=== PATIENT | male | born 2000 | race Caucasian/White ===

== ENCOUNTER 2024-07-10 03:50 | Emergency (ER) | payer MEDICAID, SELFPAY ==
[2024-07-10 04:11] VITALS: BP 154/78; PULSE 98; RESP 20; TEMP 37.1; O2SAT 99; BMI 38.3
--- NOTE | 2024-07-10 04:18 | W.ED.EAR ---
HPI - Ear Problem General: Chief complaint: Ear Stated complaint: left ear pain Time Seen by Provider: 07/10/24 04:10 History of Present Illness: This patient is a 23-year-old white male who presents to the emergency department complaining of left ear pain. Patient states he just saw his ENT doctor a couple of days ago with right ear pain. He states he was placed on ofloxacin drops and an antifungal drop. He has not had a fever. No drainage from the ear. Associated symptoms: Reports ear or mastoid pain Related Data Previous Rx's ?Medication ?Instructions ?Recorded amoxicillin 875 mg-potassium 1 tab PO BID 10 days #20 tabs 06/18/24 clavulanate 125 mg tablet citalopram 10 mg tablet See Rx Instructions PO DAILY 60 06/18/24 days #60 tabs cefdinir 300 mg capsule 300 mg PO BID 10 days #20 caps 07/10/24 ibuprofen 800 mg tablet 800 mg PO TID #30 tabs 07/10/24 Allergies Allergy/AdvReac Type Severity Reaction Status Date / Time No Known Allergies Allergy Verified 06/18/24 13:05 Review of Systems General: Reports: 10 or more systems reviewed and unremarkable except in HPI and below ENMT: Reports: ear or mastoid pain PFS ED PFSH: Medical History (Updated 07/10/24 @ 04:17 by Alvin Alcala MD) Chronic otitis media of right ear Dental infection Otitis media, right Medication management Otitis media Otitis externa Bilateral impacted cerumen Anxiety and depression Social History Smoking and tobacco/nicotine status: former use of tobacco/nicotine Physical Exam Const: COMMON NORMALS: no acute distress, patient oriented x3 and no limitations GENERAL APPEARANCE: cooperative and comfortable HENMT: COMMON NORMALS: normocephalic, atraumatic, Normal nasal mucous membranes and turbinates present, moist oral mucous membranes and oropharynx normal HEAD & SCALP: normal to inspection, normocephalic and atraumatic FACE & SINUS: normal facial exam NOSE: Normal nasal mucous membranes and turbinates present EXTERNAL AUDITORY CANAL: Abnormal EAC present (Left ear canal swollen and tender.) Eye: COMMON NORMALS: Equal, round and reactive pupils present, EOMs intact bilaterally and conjunctivae normal GENERAL EYE: appearance normal, both eyes and all related structures CONJUNCTIVA: Yes conjunctivae normal PUPIL: Yes Equal, round and reactive pupils present Neck/C-Spine: COMMON NORMALS: supple and no JVD Chest: COMMONS NORMALS: normal inspection of the chest Resp: COMMON NORMALS: normal respiratory effort and clear to auscultation bilaterally AUSCULTATION: clear to auscultation bilaterally Cardio: COMMON NORMALS: no JVD, regular rate, regular rhythm, No gallops present (Cardio), No murmurs present (Cardio) and No rub (Cardio) RATE: regular rate RHYTHM: regular rhythm GI: COMMON NORMALS: Normal to inspection, nondistended, normoactive bowel sounds present, Soft to palpation and non-tender AUSCULTATION: Yes normoactive bowel sounds PALPATION: Yes Soft to palpation : COMMON NORMALS: Yes no CVA tenderness BLADDER/KIDNEY EXAM: Yes no CVA tenderness Back/Pelvis: COMMON NORMALS: no CVA tenderness and thoracic and lumbar spine normal to inspection Extremity: COMMON NORMALS: normal to inspection Neuro: COMMON NORMALS: patient oriented x3 and CN's II-XII intact bilaterally Psych: COMMON NORMALS: mental status grossly normal, Normal thought process present and cooperative THOUGHT PROCESS: Normal thought process present Skin: COMMON NORMALS: no rashes or lesions noted, turgor normal and no jaundice GENERAL SKIN EXAM: no rashes or lesions noted and turgor normal Course Vital Signs: Vital signs: Vital Signs Temperature 98.8 F 07/10/24 04:11 Pulse Rate 98 07/10/24 04:11 Respiratory Rate 20 H 07/10/24 04:11 Blood Pressure 154/78 07/10/24 04:11 Pulse Oximetry 99 07/10/24 04:11 MDM - Ear Medical Decision Making I recommended the patient use the ofloxacin drops and the antifungal drops in the left ear as well. Since I could not see his tympanic membrane I will put him on Ceftin for possible otitis media. We did give him hydrocodone tablets for pain in the emergency department. I did prescribe 800 mg ibuprofen tablets. Recommended he follow-up with his ear nose and throat doctor next week if no improvement. He was discharged in stable condition. No radiology studies performed this visit Discharge Plan Discharge Patient Disposition: Home Clinical Impression: Otitis externa, Otitis media Condition: Stable Prescriptions: New cefdinir 300 mg capsule 300 mg PO BID 10 Days Qty: 20 0RF ibuprofen 800 mg tablet 800 mg PO TID Qty: 30 0RF No Action citalopram 10 mg tablet See Rx Instructions PO DAILY 60 Days Qty: 60 1RF Rx Instructions: 1 tab daily for 1 week, then increase to 2 two tabs daily amoxicillin-pot clavulanate 875-125 mg tablet 1 tab PO BID 10 Days Qty: 20 0RF Discharge Orders: Discharge ED (Routine); Ordered 07/10/24 Ordered By: Alvin Alcala Referrals: MANGO Urbina, [facility] [Primary Care Provider] - Patient Instructions: Ear Infection (ED) Activity Restrictions/Additional Instructions: Follow-up with your ear nose and throat doctor next week if no improvement. Print Language: Sudanese Coding Level of Care Code ED Ship[employer]S Master for Ramon Mckeon
[2024-07-10] MEDS: HYDROcodone-acetaminophen 5-325 mg Tablet 2 TAB PO (04:38)
[2024-07-10 04:44] VITALS: BP 128/87; PULSE 78; O2SAT 96
== END 2024-07-10 04:45 | disposition home or self-care (01) ==
PROVIDERS: Emergency Provider Emergency Medicine; PCP Nurse Practitioner Family
DX: H60.92 Unspecified otitis externa, left ear (principal); H66.92 Otitis media, unspecified, left ear; Z87.891 Personal history of nicotine dependence
CPT/HCPCS: 99283; J9999

== ENCOUNTER → 2025-03-31 12:58 | Outpatient (BNVA) | payer OTHER, SELFPAY | PROVIDERS: PCP Nurse Practitioner Family; Visit Provider Nurse Practitioner Family | DX: R63.1 Polydipsia (principal) | CPT/HCPCS: 80053; 80061; 83036; 85025 ==